=== PATIENT | male | born 1970 | race Hispanic/Latino ===

== ENCOUNTER 2022-02-05 05:57 | Observation (INO) | payer BC ==
[~2022-02-05] VITALS: Ht 188 cm; Wt 117.9 kg
[~2022-02-05 05:57] MED LIST: ALTOPREV40 MG PO; LISINOPRIL-HCT1 EACH PO; NAPROXEN250 MG PO
[2022-02-05] MEDS ORDERED: DEXAMETHASONE SOD PHOS 10 MG/1 ML VIAL ONE (07:00)
[2022-02-05] MEDS ORDERED: CELECOXIB 200 MG CAP ONE (07:00)
[2022-02-05] MEDS ORDERED: GABAPENTIN 300 MG CAP ONE (07:00)
[2022-02-05] MEDS ORDERED: TRANEXAMIC ACID 20 ML ONE (07:23)
[2022-02-05] MEDS ORDERED: Vancomycin IV 1,000 MG ONE (07:23)
[2022-02-05] MEDS ORDERED: SODIUM CHLORIDE 0.9% 250ML 250 ML ONE (07:24)
[2022-02-05] MEDS ORDERED: ROPIVACAINE 246.25 MG, EPINEPHRINE HCL 1:1000 1ML 0.5 MG, CLONIDINE HCL 0.08 MG, KETORO... INJ ONE ×5 (07:30)
[2022-02-05] MEDS ORDERED: DIPHENHYDRAMINE HCL INJ 50 MG/ML VIAL IV PRN (09:00)
[2022-02-05] MEDS ORDERED: DOCUSATE SODIUM 100 MG CAP PO PRN (09:00)
[2022-02-05] MEDS ORDERED: HYDROCODONE/APAP 5MG-325MG TAB PO PRN (09:00)
[2022-02-05] MEDS ORDERED: ONDANSETRON HCL INJ 2MG/ML 2ML 2 MG/ML VIAL IV PRN (09:00)
[2022-02-05] MEDS ORDERED: ZOLPIDEM TARTRATE 5 MG TAB PO PRN (09:00)
[2022-02-05] MEDS ORDERED: HYDROCODONE/APAP 7.5MG-325MG 1 EA TAB PO PRN (09:00)
[2022-02-05] MEDS ORDERED: ACETAMINOPHEN 650 MG SUPP PR PRN (09:00)
[2022-02-05] MEDS ORDERED: SODIUM CHLORIDE 0.9% 1000ML 1,000 ML IV SCH (09:00)
[2022-02-05] MEDS ORDERED: KETOROLAC TROMETHAMINE 30 MG/ML VIAL IV PRN (09:00)
[2022-02-05 10:10] VITALS: BP 132/77
[2022-02-05 10:22] VITALS: BP 132/77
[2022-02-05 11:26] VITALS: BP 121/79
[2022-02-05] MEDS: ASPIRIN 325 MG TAB PO SCH ×2 (11:38→16:29)
[2022-02-05] MEDS ORDERED: FENTANYL CITRATE/PF 100MCG/2 ML INJ ONE (14:04)
[2022-02-05] MEDS ORDERED: MIDAZOLAM HCL 2 MG/2 ML VIAL ONE (14:04)
[2022-02-05 15:43] VITALS: BP 116/75
[2022-02-05] MEDS ORDERED: CELECOXIB 100 MG CAP PO SCH (17:00)
[2022-02-05] MEDS ORDERED: EPHEDRINE SULFATE INJ 50 MG/ML VIAL ONE (17:10)
[2022-02-05] MEDS ORDERED: POVIDONE IODINE 0.05% 0.05 % ML PO ONE (17:10)
[2022-02-05] MEDS ORDERED: PROPOFOL IV EMULSION 10 MG/ML 20 ML VIAL ONE (17:10)
[2022-02-05] MEDS ORDERED: ONDANSETRON HCL INJ 2MG/ML 2ML 2 MG/ML VIAL ONE (17:10)
[2022-02-05] MEDS ORDERED: PHENYLEPHRINE HCL 1% 10 MG/ML VIAL ONE (17:10)
[2022-02-06] MEDS ORDERED: ACETAMINOPHEN 1000 MG/100 ML IV PRN (09:00)
== END 2022-02-05 18:18 | disposition home or self-care (01) ==
LOC: OR 05:57 → PACU V 08:56 → MED/SURG 09:50
PROVIDERS: ADMIT Specialist; ATTEND Specialist
DX: M16.0 Bilateral primary osteoarthritis of hip (principal); Z20.822 Contact with and (suspected) exposure to COVID-19; Z01.818 Encounter for other preprocedural examination; I10 Essential (primary) hypertension; E66.09 Other obesity due to excess calories; Z68.34 Body mass index [BMI] 34.0-34.9, adult; K76.0 Fatty (change of) liver, not elsewhere classified; E78.5 Hyperlipidemia, unspecified
CPT/HCPCS: 0223U; 27130; 36415; 72170; 86850; 86900; 86920; 94799; 97110; 97116; 97161; C1713 ×2; C1776 ×2; G0378; J0171; J0690; J1100; J1885; J2250; J2370; J2405; J2704; J2795; J3010; J3370; J7030; J7050